=== PATIENT | male | born 1985 | race Caucasian/White ===

== ENCOUNTER 2021-06-22 17:52 | Emergency (ER) | payer SELFPAY ==
[~2021-06-22] VITALS: Ht 170.2 cm; Wt 70.0 kg
[2021-06-22 18:00] VITALS: BP 127/87
--- NOTE | 2021-06-22 18:51 | PHYS DOC ---
Past Medical History Past Medical History: Bipolar Past Surgical History: No Surgical History Smoking Status: Current Every Day Smoker Additional Information: 0.25 PPD Alcohol Use: None Social History Narrative: ACID General Adult EDM: Chief Complaint: PSYCH EVALUATION HPI: HPI: Patient is a 35-year-old male that presents today with needing a psychiatric evaluation. Patient states that approximately 1 year ago he was at the [facility] psychiatric facility, he states that when he was there he was able to get regulated on medications for his bipolar disorder, he states that when he left there he has been living in a tent and [facility] because he is homeless at this time, he states that he thinks he had a seizure last night in his sleep but cannot be sure, he denies any alcohol or drug use to me. Patient states that he does have a history of bipolar disorder and is requesting to go back to the [facility]. Patient denies suicidal ideations or homicidal ideations at this time, he states he is on no medications at this time as well. [place] [facility], he states he walked here or got a ride from a [employer] member he is giving both stories. When asked about family members in the area he says he had does have family in the area but he does not know the number and does not know how to contact them. Patient is requesting a meal, a ride to [facility], and admission to the psychiatric facility [facility]. Review of Systems: Review of Systems: Constitutional: Denies fever or chills. [] Eyes: Denies change in visual acuity. [] HENT: Denies nasal congestion or sore throat. [] Respiratory: Denies cough or shortness of breath. [] Cardiovascular: Denies chest pain or edema. [] GI: Denies abdominal pain, nausea, vomiting, bloody stools or diarrhea. [] : Denies dysuria. [] Musculoskeletal: Denies back pain or joint pain. [] Integument: Denies rash. [] Neurologic: Denies headache, focal weakness or sensory changes. [] Endocrine: Denies polyuria or polydipsia. [] Lymphatic: Denies swollen glands. [] Psychiatric: Denies depression or anxiety, suicidal or homicidal ideations Heart Score: C/O Chest Pain: No Risk Factors: Risk Factors: DM, Current or recent (<one month) smoker, HTN, HLP, family history of CAD, obesity. Risk Scores: Score 0 - 3: 2.5% MACE over next 6 weeks - Discharge Home Score 4 - 6: 20.3% MACE over next 6 weeks - Admit for Clinical Observation Score 7 - 10: 72.7% MACE over next 6 weeks - Early Invasive Strategies Allergies: Allergies: Allergies Coded Allergies Type Severity Reaction Last Updated Verified codeine Allergy Intermediate 06/22/21 Yes morphine Allergy Intermediate 06/22/21 Yes Physical Exam: PE: Constitutional: Well developed, well nourished, no acute distress, non-toxic appearance. [] HENT: Normocephalic, atraumatic, bilateral external ears normal, oropharynx moist, no oral exudates, nose normal. [] Eyes: PERRLA, EOMI, conjunctiva normal, no discharge. [] Neck: Normal range of motion, no tenderness, supple, no stridor. [] Cardiovascular:Heart rate regular rhythm, no murmur [] Lungs & Thorax: Bilateral breath sounds clear to auscultation [] Abdomen: Bowel sounds normal, soft, no tenderness, no masses, no pulsatile masses. [] Skin: Warm, dry, no erythema, no rash. [] Back: No tenderness, no CVA tenderness. [] Extremities: No tenderness, no cyanosis, no clubbing, ROM intact, no edema. [] Neurologic: Alert and oriented X 3, normal motor function, normal sensory function, no focal deficits noted. [] Psychologic: Affect normal, judgement normal, mood normal. [] Current Patient Data: Labs: Laboratory Tests Test 06/22/21 18:18 06/22/21 18:30 06/22/21 18:50 Urine Collection Type Unknown Urine Color (Auto) Colorless Urine Turbidity Clear Urine pH (Auto) 5.5 Urine Specific [place] 1.005 Urine Protein (Auto) Negative mg/dL Urine Glucose (Auto)(UA) Negative mg/dL Urine Ketones (Auto) Negative mg/dL Urine Blood (Auto) Negative Urine Nitrite Negative Urine Bilirubin (Auto) Negative Urine Urobilinogen (Auto) Normal mg/dL Urine Leukocyte Esterase (Auto) Negative Urine RBC 0 /HPF Urine WBC 0 /HPF Urine Squamous Epithelial Cells None /LPF Urine Bacteria 0 /HPF Urine Opiates Screen Neg Urine Methadone Screen Neg Urine Barbiturates Neg Urine Phencyclidine Screen Neg Urine Amphetamine/Methamphetamine Neg Urine Benzodiazepines Screen Neg Urine Cocaine Screen Neg Urine Cannabinoids Screen Neg Urine Ethyl Alcohol Neg White Blood Count 7.9 x10^3/uL Red Blood Count 4.21 x10^6/uL Hemoglobin 13.7 g/dL Hematocrit 40.1 % Mean Corpuscular Volume 95 fL Mean Corpuscular Hemoglobin 33 pg Mean Corpuscular Hemoglobin Concent 34 g/dL Red Cell Distribution Width 12.1 % Platelet Count 203 x10^3/uL Neutrophils (%) (Auto) 62 % Lymphocytes (%) (Auto) 32 % Monocytes (%) (Auto) 5 % Eosinophils (%) (Auto) 1 % Basophils (%) (Auto) 1 % Neutrophils # (Auto) 4.9 x10^3/uL Lymphocytes # (Auto) 2.5 x10^3/uL Monocytes # (Auto) 0.4 x10^3/uL Eosinophils # (Auto) 0.1 x10^3/uL Basophils # (Auto) 0.1 x10^3/uL Sodium Level 140 mmol/L Potassium Level 3.8 mmol/L Chloride Level 104 mmol/L Carbon Dioxide Level 26 mmol/L Anion Gap 10 Blood Urea Nitrogen 15 mg/dL Creatinine 1.0 mg/dL Estimated GFR (Cockcroft-Gault) 85.5 BUN/Creatinine Ratio 15 Glucose Level 102 mg/dL Calcium Level 9.3 mg/dL Total Bilirubin 0.1 mg/dL Aspartate Amino Transf (AST/SGOT) 28 U/L Alanine Aminotransferase (ALT/SGPT) 31 U/L Alkaline Phosphatase 81 U/L Total Protein 7.3 g/dL Albumin 4.0 g/dL Albumin/Globulin Ratio 1.2 Salicylates Level 1.2 mg/dL Salicylate Last Dose Date Salicylate Last Dose Time Acetaminophen Level < 2 mcg/ml Acetaminophen Last Dose Date Acetaminophen Last Dose Time Ethyl Alcohol Level < 10 mg/dL SARS-CoV-2 Antigen (Rapid) Negative Vital Signs: Vital Signs Date Time Temp Pulse Resp B/P (MAP) Pulse Ox O2 Delivery O2 Flow Rate FiO2 06/22/21 18:00 98.2 112 18 127/87 (100) 96 Room Air 98.2 EKG: EKG: [] Radiology/Procedures: Radiology/Procedures: [] Course & Med Decision Making: Course & Med Decision Making Pertinent Labs and Imaging studies reviewed. (See chart for details) 184 did tell patient that we will get him a meal, and that we will contact our psychiatric assessment team to come in to talk to him about possible placement. He is agreeable. 1929 spoke to psychiatric assessment team and they are agreeable to speaking to the patient for possible placement. 2044 psychiatric assessment team did not feel at this time the patient needs inpatient psychiatric care, they did give him outpatient resources that he can call and follow-up with. Patient will be given a phone with [facility] for the patient to find a place to stay for tonight. Patient's laboratory results are all within normal limits, he is in no acute distress, he is not suicidal or homicidal at this time, and he is resting with his eyes closed in no acute respiratory distress. Dragon Disclaimer: Dragon Disclaimer: This electronic medical record was generated, in whole or in part, using a voice recognition dictation system. Departure Departure Impression: Primary Impression: Encounter for medical screening examination Disposition: HOME / SELF CARE / HOMELESS Condition: STABLE Patient Instructions: Normal Exam in Emergency Department Additional Instructions: Follow-up with one of the listed psychiatric resources that was given to you by the psychiatric assessment team for further management of your bipolar disorder Follow-up with your primary care or one of the listed clinics below for further medical management of your medical conditions [facility] [address] [place] [address] [facility] [address] [place] [address] [facility] [address] [place] [address] [facility] [address] [place] [address] [facility] [address] [place] [address] [facility] [address] [place] [address] [facility] [address] [place] [address] [facility] [address] [place] [address] [facility] [address] [place] [address] [facility] Department [address] [place] [address] ASHLEY MAGALLON APRN Jun 22, 2021 18:51
[2021-06-22 19:07] LABS: BASO # 0.1 x10^3/uL (0.0-0.2); BASO % 1 % (0-3); EOS # 0.1 x10^3/uL (0.0-0.7); EOS % 1 % (0-3); HEMATOCRIT 40.1 % (39.0-53.0); HEMOGLOBIN 13.7 g/dL (13.0-17.5); LYMPH # 2.5 x10^3/uL (1.0-4.8); LYMPH % 32 % (24-48); MEAN CORPUSCULAR HEMOGLOBIN 33 pg (25-35); MEAN CORPUSCULAR HGB CONC 34 g/dL (31-37); MEAN CORPUSCULAR VOLUME 95 fL (79-100); MONO # 0.4 x10^3/uL (0.0-1.1); MONO % 5 % (0-9); NEUT # 4.9 x10^3/uL (1.8-7.7); NEUT % 62 % (31-73); PLATELET COUNT 203 x10^3/uL (140-400); RED BLOOD COUNT 4.21 x10^6/uL (4.30-5.70); RED CELL DISTRIBUTION WIDTH 12.1 % (11.5-14.5); WHITE BLOOD COUNT 7.9 x10^3/uL (4.0-11.0)
[2021-06-22 19:17] LABS: AMPHETAMINE/METHAMPHETAMINE NEG (NEG); BARBITURATES NEG (NEG); BENZODIAZEPINES NEG (NEG); CANNABINOIDS NEG (NEG); COCAINE NEG (NEG); METHADONE NEG (NEG); OPIATES NEG (NEG); PHENCYCLIDINE NEG (NEG)
[2021-06-22 19:21] LABS: CALCIUM 9.3 mg/dL (8.5-10.1); GFR 85.5; POTASSIUM 3.8 mmol/L (3.5-5.1)
[2021-06-22 19:23] LABS: ACETAMIN < 2 mcg/ml (10-30); ETHANOL < 10 mg/dL (0-10); SALIC 1.2 mg/dL (2.8-20.0)
[2021-06-22 19:26] LABS: BACTERIA,URINE 0 /HPF (0-FEW); RBC,URINE 0 /HPF (0-2); WBC,URINE 0 /HPF (0-4)
[2021-06-22 19:33] LABS: ALBUMIN/GLOBULIN RATIO 1.2 (1.0-1.7); TOTAL BILIRUBIN 0.1 mg/dL (0.2-1.0); TOTAL PROTEIN 7.3 g/dL (6.4-8.2)
== END 2021-06-22 21:34 | disposition home or self-care (01) ==
LOC: ER 17:52
DX: R56.9 Unspecified convulsions (principal); Z20.822 Contact with and (suspected) exposure to COVID-19; F31.9 Bipolar disorder, unspecified; F17.200 Nicotine dependence, unspecified, uncomplicated; Z88.5 Allergy status to narcotic agent
CPT/HCPCS: 80053; 80307; 80329; 81001; 85025; 87426; 99283; C9803; G0480; U0003

== ENCOUNTER 2021-06-23 07:41 | Emergency (ER) | payer OTHER ==
[~2021-06-23] VITALS: Ht 170.2 cm; Wt 67.3 kg
--- NOTE | 2021-06-23 08:13 | ED.ADGEN ---
Past Medical History Past Medical History: Bipolar Past Surgical History: No Surgical History Smoking Status: Current Every Day Smoker Alcohol Use: None General Adult EDM: Chief Complaint: PSYCH EVALUATION HPI: HPI: Patient is a 35 year old male checking back into the emergency department for psychiatric evaluation and wanting placed in "witness protection". Was evaluated medically cleared last night, evaluated by PAT, and deemed not needing inpatient treatment. Patient states he was in [facility] 1 year ago and never got follow-up for medication refills. Is not taking medications the past year. Patient states that his family members are going to "kill him." He states that they are in [facility] and he is unsure of how he got to the [place] area but thinks that the police brought him. Patient is homeless and slept outside under bushes on hospital grounds. Patient complaining of a sore throat but it is improved since he has come inside and had something to drink Review of Systems: Review of Systems: All other systems within normal limits except for as noted in the HPI Allergies: Allergies: Allergies Coded Allergies Type Severity Reaction Last Updated Verified codeine Allergy Intermediate 06/22/21 Yes morphine Allergy Intermediate 06/22/21 Yes Physical Exam: PE: Constitutional: Well developed, well nourished, no acute distress, non-toxic appearance. [] HENT: Normocephalic, atraumatic, bilateral external ears normal, nose normal. [] Eyes: PERRLA, conjunctiva normal, no discharge. [] Neck: No rigidity, supple, no stridor. [] Cardiovascular: Regular rate and rhythm, brisk cap refill [] Lungs & Thorax: Non labored symmetric respirations, no tachypnea or respiratory distress [] Abdomen: Soft, nondistended. Skin: Warm, dry, no erythema, no rash. [] Back: Unremarkable Extremities: No deformities, range of motion grossly intact, no lower extremity edema [] Neurologic: Alert and oriented X 3, no focal deficits noted. [] Psychologic: Affect normal, paranoid thoughts Current Patient Data: Vital Signs: Vital Signs Date Time Temp Pulse Resp B/P (MAP) Pulse Ox O2 Delivery O2 Flow Rate FiO2 06/23/21 07:47 97.9 103 16 137/82 (100) 96 Room Air 97.9 EKG: EKG: [] Heart Score: C/O Chest Pain: No Risk Factors: Risk Factors: DM, Current or recent (<one month) smoker, HTN, HLP, family history of CAD, obesity. Risk Scores: Score 0 - 3: 2.5% MACE over next 6 weeks - Discharge Home Score 4 - 6: 20.3% MACE over next 6 weeks - Admit for Clinical Observation Score 7 - 10: 72.7% MACE over next 6 weeks - Early Invasive Strategies Radiology/Procedures: Radiology/Procedures: [] Course & Med Decision Making: Course & Med Decision Making Patient had unremarkable work-up yesterday was medically cleared, would not redo labs since they were 12 hours old. PCR still pending Patient cooperative for PT evaluation. Patient has resources and housing available in [place]. Is amenable to going back and utilizing his resources. Denies any thoughts of self-harm or harm to others. We were able to obtain a cab voucher for patient to return to [place] for continuation of his psychiatric treatment Napoleon Disclaimer: Napoleon Disclaimer: This electronic medical record was generated, in whole or in part, using a voice recognition dictation system. Departure Departure Impression: Primary Impression: Encounter for medical screening examination Disposition: HOME / SELF CARE / HOMELESS Condition: STABLE Referrals: NO PCP (PCP) Patient Instructions: Medical Screening Exam LAURA MALLORY MD Jun 23, 2021 08:13
[2021-06-23 11:50] VITALS: BP 121/74
== END 2021-06-23 11:52 | disposition home or self-care (01) ==
LOC: ER 07:41
DX: J02.9 Acute pharyngitis, unspecified (principal); F31.9 Bipolar disorder, unspecified; F17.200 Nicotine dependence, unspecified, uncomplicated; Z88.5 Allergy status to narcotic agent
CPT/HCPCS: 99281